=== PATIENT | male | born 1965 | race Caucasian/White ===

== ENCOUNTER 2018-08-24 17:58 | Observation (INO) ==
--- NOTE | 2018-08-24 18:05 | Emergency Department Note ---
Disposition Clinical Impression: Hyponatremia Chest pain Qualifiers: Chest pain type: unspecified Qualified Code(s): R07.9 - Chest pain, unspecified Disposition: Admitted As Inpatient Condition: Undetermined Referrals: Chris Holden DO [Primary Care Provider] - Forms: ED Satisfaction Letter Time of Disposition: 20:04 Chest Pain HPI - General Chief Complaint: ED Chest Pain Stated Complaint: chest pain Time Seen by Provider: 08/24/18 18:01 Source: patient Mode of arrival: wheelchair Limitations: physical limitation Vital Signs Reviewed: Yes Nursing Notes Reviewed: Yes - History of Present Illness HPI Narrative: 52-year-old male with history of hypertension, hyperlipidemia, cardiovascular disease, history of 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 The patient states his baseline dyspnea has worsened. In addition the patient is describing intermittent episodes of the patient is sitting still having some intermittent chest pain. The patient has no other associated symptoms at this time. He is taking all his medications as prescribed. Patient states he thinks he has had an AL before but he has had no previous stents placed. - Related Data Home Medications Medication Instructions Recorded Confirmed Baclofen [Lioresal] 15 mg PO QID 09/24/16 06/23/18 Oxycodone HCl 15 mg PO QID 09/24/16 06/23/18 Vitamin E (Dl,Tocopheryl Acet) 400 unit PO DAILY 09/24/16 06/23/18 [Vitamin E] Lisinopril [Zestril] 20 mg PO BID 06/06/17 06/23/18 Omeprazole [PriLOSEC] 40 mg PO DAILY 06/06/17 06/23/18 Gabapentin [Neurontin] 100 mg PO BID 09/05/17 06/23/18 Tamsulosin [Flomax] 0.4 mg PO DAILY 09/05/17 06/23/18 Calcitriol [Calcitriol] 0.5 g PO DAILY 08/24/18 08/24/18 Carvedilol [Carvedilol] 12.5 mg PO BID 08/24/18 08/24/18 Chlorhexidine Rinse 15 ml MM BID 08/24/18 08/24/18 Ferrous Sulfate Oral Soln 5 ml PO BID 08/24/18 08/24/18 Morphine Sulfate [Arymo ER] 30 mg PO Q12H 08/24/18 08/24/18 Multivitamin [One Daily Essential] 1 tab PO DAILY 08/24/18 08/24/18 Potassium Chloride [K-Tab ER] 20 meq PO DAILY 08/24/18 08/24/18 Sodium Chloride [Sodium Chloride 2,000 mg PO QID 08/24/18 08/24/18 Tab] Trazodone HCl [Trazodone HCl] 100 mg PO HS PRN 08/24/18 08/24/18 Previous Rx's Medication Instructions Recorded Clopidogrel [Plavix] 75 mg PO DAILY #30 tablet 04/04/17 Simvastatin [Zocor] 20 mg PO DAILY #30 tablet 10/12/17 Levothyroxine [Synthroid] 150 mcg PO DAILY #30 tablet 11/04/17 Magic Mouthwash 5 ml PO Q4HR PRN #300 ml 06/23/18 Allergies Allergy/AdvReac Type Severity Reaction Status Date / Time No Known Allergies Allergy Verified 08/24/18 19:37 All systems ED: reviewed and negative except as stated. Constitutional: Denies: fever, chills ENT ED: Denies: congestion Cardiovascular: Reports: chest pain, dyspnea on exertion. Denies: edema, syncope Respiratory: Reports: dyspnea. Denies: cough, sputum production Gastrointestinal: Denies: abdominal pain, nausea, vomiting Genitourinary: Denies: urgency, dysuria Musculoskeletal: Denies: myalgia Integumentary: Denies: rash Neurological: Denies: headache Chest Pain PMH - Past Medical History Medical history: Reports: non-contributory, cancer, COPD, coronary artery disease, hyperlipidemia, hypertension, other Surgical history: Reports: tracheostomy Psychiatric history: Reports: no psych history - Social History Smoking Status: Former smoker Alcohol use: Reports: none Drug use: Reports: none Physical Exam - General Limitations: other (Tracheostomy) General appearance: alert, in no apparent distress, cachectic - Head Head exam: atraumatic, normocephalic, normal inspection - Eye Eye exam: Present: normal appearance, PERRL, EOMI - ENT ENT exam: normal exam, normal oropharynx, mucous membranes moist - Neck Neck exam: Present: full ROM, trachea midline, other (Tracheostomy in place). Absent: tenderness - Chest Chest inspection: Present: normal inspection, symmetric chest wall rise - Respiratory Respiratory exam: Present: normal lung sounds bilaterally - Cardiovascular Cardiovascular exam: Present: regular rate, normal rhythm, normal heart sounds - Abdominal Exam Abdominal exam: Present: soft, Non-Tender. Absent: tenderness, distention, guarding, rebound, rigidity - Extremities Exam Extremities exam: Present: normal inspection, full ROM. Absent: tenderness, pedal edema - Neurological Exam Neurological exam: Present: alert, oriented X3 - Skin Skin exam: Present: warm, dry, intact, normal color Course Vital Signs Temperature 97.9 F 08/24/18 17:59 Pulse Rate 81 08/24/18 17:59 Respiratory Rate 16 08/24/18 17:59 Blood Pressure 142/80 08/24/18 17:59 O2 Sat by Pulse Oximetry 100 08/24/18 17:59 Temperature 97.9 F 08/24/18 17:59 Pulse Rate 71 08/24/18 20:01 Respiratory Rate 12 08/24/18 20:01 Blood Pressure 120/82 08/24/18 20:01 O2 Sat by Pulse Oximetry 99 08/24/18 20:01 Oxygen Delivery Oxygen Delivery Room Air Chest Pain - MDM Narrative Medical decision making narrative: Patient's workup in the emergency department demonstrates no acute process. Given the exertional and nonexertional chest pain and dyspnea the patient is experiencing, concerned about potential ACS. The patient will be admitted to the hospital for ACS rule out. The patient was made aware and agrees to plan. He got aspirin here in the emergency department. No further questions or concerns noted at this time. Accepted by Dr. Sánchez. - Lab Data Lab results reviewed: Yes I reviewed the patient's lab results. Result diagrams: 08/24/18 18:12 08/24/18 18:12 Lab Results 08/24/18 08/24/18 08/24/18 Range/Units 18:02 18:12 18:12 WBC 6.1 (4.3-11.1) K/mcL RBC 4.52 (4.19-5.50) M/mcL Hgb 12.9 (12.9-16.9) g/dL Hct 38.9 (37.5-50.1) % MCV 86.1 (83.0-100.0) fL MCH 28.5 (28.0-33.3) pg MCHC 33.2 (31.6-35.5) g/dL RDW 13.1 (11.5-14.5) % Plt Count 282 (140-400) K/mcL MPV 8.7 L (9.4-12.4) fL Immature Gran % 0.3 (0-4) % Seg Neutrophils % 80.3 % Lymphocytes % 7.9 % Monocytes % 10.7 % Eosinophils % 0.5 % Basophils % 0.3 % Neutrophils # 4.9 (1.6-8.9) K/mcL Lymphocytes # 0.5 L (0.6-4.6) K/mcL Monocytes # 0.7 (0.0-1.3) K/mcL Eosinophils # 0.0 (0.0-0.6) K/mcL Basophils # 0.0 (0.0-0.2) K/mcL APTT 27.2 (26.0-36.0) Seconds Sodium 125 L (136-145) mEq/L Potassium 3.7 (3.5-5.1) mEq/L Chloride 84 L (98-107) mEq/L Carbon Dioxide 33 H (23-29) mEq/L BUN 12 (6-20) mg/dL Creatinine 0.36 L (0.70-1.30) mg/dL Est GFR ( Amer) > 60 (> 60) Est GFR (Non-Af Amer) > 60 (> 60) BUN/Creatinine Ratio 33 H (6-26) Glucose 120 H (70-105) mg/dL Calculated Osmolality 261 L (280-300) Calcium 9.5 (8.6-10.3) mg/dL Troponin I < 0.03 (< 0.04) ng/mL - Radiology Data Radiology results reviewed: Yes I reviewed the patient's radiology results. Chest X-Ray 08/24/18 18:02 IMPRESSION: Persistent opacification in the right upper lung. Otherwise, no acute abnormality noted in the chest D/ / Ever Preciado MD / Ever Preciado MD Interpreting Provider: Ever Preciado MD - EKG Data EKG attestation: Yes I reviewed and interpreted this EKG. EKG results narrative: Heart rate 82 beats for minute. Normal sinus rhythm. No ST elevation or ST depression noted. Some peaking of T waves noted throughout the anterior lateral leads. In addition the patient does have some LA depression that is noted throughout but it is difficult to assess completely secondary to artifact and baseline wander.
--- NOTE | 2018-08-24 18:08 | Emergency Department Note ---
Disposition Clinical Impression: Chest pain Qualifiers: Chest pain type: unspecified Qualified Code(s): R07.9 - Chest pain, unspecified Disposition: Still a Patient Forms: ED Satisfaction Letter General Adult HPI - General Chief complaint: ED Chest Pain Stated complaint: chest pain Time Seen by Provider: 08/24/18 18:01 Source: patient Mode of arrival: wheelchair Limitations: physical limitation - History of Present Illness HPI Narrative: ED ATTESTATION NOTE: I examined this patient and my medical decision-making was reviewed with the Resident Physician/[employer] PICK UP DRIVER/PA/Student. I have personally performed a face to face evaluation on this patient & I agree with the documented findings, disposition and treatment plan as described except to the extent set forth below. Patient was seen with emergency medicine resident Dr. Med Sharma please see copy of his note for details of this encounter Briefly: 52-year-old male brought in for medical assistance he was trying findings U or chest pain. History of tracheostomy from cancer history of smoking history of coronary artery disease heart score of at least 4 EKG shows some elevated T waves maybe some. Depression. Patient will undergo troponin chest x-ray screening labs and admission. Disposition pending Pain Scale: 4 - Related Data Home Medications Medication Instructions Recorded Confirmed Calcitriol [Rocaltrol] 0.5 mcg PO DAILY 06/30/15 06/23/18 Carvedilol [Coreg] 12.5 mg PO BIDWM 06/30/15 06/23/18 Ferrous Sulfate Oral Soln 5 ml PO TID 06/30/15 06/23/18 Baclofen [Lioresal] 15 mg PO QID 09/24/16 06/23/18 Docusate [Colace] 100 mg PO BID PRN 09/24/16 06/23/18 Morphine Sulfate ER (24 HR) 30 mg PO Q12H 09/24/16 06/23/18 [Morphine Sulfate ER] Oxycodone HCl 15 mg PO QID 09/24/16 06/23/18 Vitamin E (Dl,Tocopheryl Acet) 400 unit PO DAILY 09/24/16 06/23/18 [Vitamin E] Lisinopril [Zestril] 20 mg PO BID 06/06/17 06/23/18 Omeprazole [PriLOSEC] 40 mg PO DAILY 06/06/17 06/23/18 Potassium Chloride Elixir 15 ml PO DAILY 06/06/17 06/23/18 [Potassium Chloride] Sodium Chloride 2,000 mg PO QID 06/06/17 06/23/18 Acetaminophen [Tylenol] 500 mg PO Q6HR PRN 09/05/17 06/23/18 Gabapentin [Neurontin] 100 mg PO BID 09/05/17 06/23/18 Tamsulosin [Flomax] 0.4 mg PO DAILY 09/05/17 06/23/18 Albuterol Sulfate [Albuterol 1 puff IH Q6H PRN 06/23/18 06/23/18 Inhaler] Azelastine HCl [Astepro] 1 spray NS PRN PRN 06/23/18 06/23/18 Gluc 2Kcl/Chondr/Alex Hy/Hy AC 1 each PO DAILY 06/23/18 06/23/18 [Glucosamine & Chondroitin Cap] Lansoprazole [Prevacid] 30 mg PO DAILY 06/23/18 06/23/18 Previous Rx's Medication Instructions Recorded Clopidogrel [Plavix] 75 mg PO DAILY #30 tablet 04/04/17 Trazodone HCl 100 mg PO HS PRN #30 tablet 04/04/17 Simvastatin [Zocor] 20 mg PO DAILY #30 tablet 10/12/17 Levothyroxine [Synthroid] 150 mcg PO DAILY #30 tablet 11/04/17 Supplies [SUPPLIES] 1 each .ROUTE DAILY #20 each 01/12/18 Lactose-Reduced Food [Ensure 237 ml PO BID #60 liquid 02/16/18 Enlive] Megestrol Acetate [Megace] 800 mg PO DAILY #400 udc 02/16/18 Ondansetron [Zofran ODT] 8 mg SL Q8H PRN #60 tab 02/16/18 Azithromycin [Azithromycin 6-Tab 250 mg PO PER PKG DI #6 tab 03/24/18 Pack] Neomycn/Baci Zn/Pmyx Bs/Pramox 28 gm TP AD #1 oint...g. 03/24/18 [Eql First Aid Antibiotic-Pain] Chlorhexidine Rinse 15 ml MM DAILY #200 mouthwash 06/23/18 Magic Mouthwash 5 ml PO Q4HR PRN #300 ml 06/23/18 Supplies [SUPPLIES] 1 each .ROUTE AD #1 each 06/23/18 Allergies Allergy/AdvReac Type Severity Reaction Status Date / Time No Known Allergies Allergy Verified 06/23/18 11:49 Constitutional: Denies: fever, chills ENT ED: Denies: congestion Cardiovascular: Reports: chest pain, dyspnea on exertion. Denies: edema, syncope Respiratory: Reports: dyspnea. Denies: cough, sputum production Gastrointestinal: Denies: abdominal pain, nausea, vomiting Genitourinary: Denies: urgency, dysuria Musculoskeletal: Denies: myalgia Integumentary: Denies: rash Neurological: Denies: headache Past Medical History - Past Medical History Medical history: Reports: non-contributory, cancer, COPD, coronary artery disease, hyperlipidemia, hypertension, other Surgical history: Reports: tracheostomy Psychiatric history: Reports: no psych history - Social History Smoking Status: Former smoker Smokeless Tobacco Status: No Alcohol use: Reports: none Drug use: Reports: none Physical Exam - General Limitations: physical limitation General appearance: alert, in no apparent distress Course Vital Signs Temperature 97.9 F 08/24/18 17:59 Pulse Rate 81 08/24/18 17:59 Respiratory Rate 16 08/24/18 17:59 Blood Pressure 142/80 08/24/18 17:59 O2 Sat by Pulse Oximetry 100 08/24/18 17:59 Temperature 97.9 F 08/24/18 17:59 Pulse Rate 81 08/24/18 17:59 Respiratory Rate 16 08/24/18 17:59 Blood Pressure 142/80 08/24/18 17:59 O2 Sat by Pulse Oximetry 100 08/24/18 17:59 Oxygen Delivery Oxygen Delivery Room Air
[2018-08-24 18:26] LABS: Basophils % 0.3 %; Eosinophils % 0.5 %; Hematocrit 38.9 % (37.5-50.1); Hemoglobin 12.9 g/dL (12.9-16.9); Immature Granulocytes % 0.3 % (0-4); Lymphocytes # 0.5 K/mcL (0.6-4.6); Lymphocytes % 7.9 %; Mean Corpuscular HGB Conc 33.2 g/dL (31.6-35.5); Mean Corpuscular Hemoglobin 28.5 pg (28.0-33.3); Mean Corpuscular Volume 86.1 fL (83.0-100.0); Mean Platelet Volume 8.7 fL (9.4-12.4); Monocytes # 0.7 K/mcL (0.0-1.3); Monocytes % 10.7 %; Neutrophils # 4.9 K/mcL (1.6-8.9); Platelet Count 282 K/mcL (140-400); Red Blood Count 4.52 M/mcL (4.19-5.50); Red Cell Distribution Width 13.1 % (11.5-14.5); Segmented Neutrophils % 80.3 %
[2018-08-24 18:46] LABS: Troponin I < 0.03 ng/mL (< 0.04)
[2018-08-24 18:48] LABS: BUN/Creatinine Ratio 33 (6-26); Blood Urea Nitrogen 12 mg/dL (6-20); Calcium 9.5 mg/dL (8.6-10.3); Carbon Dioxide 33 mEq/L (23-29); Chloride 84 mEq/L (98-107); Glucose 120 mg/dL (70-105); Osmolality,Calculated 261 (280-300); Potassium 3.7 mEq/L (3.5-5.1); Sodium 125 mEq/L (136-145); eGFR For Non-African Americans > 60 (> 60)
[2018-08-24] MEDS ORDERED: Aspirin 325 MG TABLET PO ONE (19:03)
[2018-08-24] MEDS ORDERED: Naloxone 0.4 MG/ML INJ IVP PRN ×2 (21:26→21:27)
--- NOTE | 2018-08-24 21:28 | Internal Med History&Physical ---
<Pravin Rhodes - Last Filed: 08/25/18 00:39> Date of Encounter: 08/25/18 Time of Encounter: 21:28 Internal Medicine - H&P: HPI Chief complaint: Chest Pain Admitted From: Emergency Dept Plans for Post Hospital Care: Home History of present illness: Mr. Ryan is a 52 year old male with a past medical history of COPD, lung cancer, tracheostomy, coronary artery disease, hyperlipidemia, hypertension. He presented to the emergency department for 2 days of progressive chest pain. He states that the chest pain feels like muscle pain to him however it was not resolving so he came in. He cannot correlate the chest pain to activity or rest , he describes it as being across his entire chest without radiation, he denies any shortness of breath other than his baseline. He also denies any fever, chills, abdominal pain or nausea. EKG in the emergency department demonstrated sinus rhythm, normal rate, peaked T waves that were identified on previous EKGs. Chest x-ray demonstrated right upper lobe opacification that appears to be persistent and stable from previous chest x-rays, likely related to previous lung cancer. Vitals were within normal limits, CBC noncontributory, CMP with hyponatremia at 125, bicarbonate 33 likely related to COPD. Troponin less than 0.03. Aspirin 325 mg given once and ED with improvement of patient's chest pain. On my exam patient states he is still having mild chest pain but is in no acute distress. He believes he had a heart attack approximately 20-30 years ago but does not remember the circumstances and otherwise denies cardiac history. He states he still smokes 2-3 cigarettes per day, denies alcohol or drug use. Past Med Surg Social Fam HX - Past Medical History Medical history: non-contributory, cancer, COPD, coronary artery disease, hyperlipidemia, hypertension, other Additional medical history: tobacco abuse. colon cancer screening. tracheostomy status. history of throat cancer. PEG Psychiatric history: no psych history - Past Surgical History Surgical History: tracheostomy Additional surgical history: TRACHEOSTOMY, G-TUBE - Social History Smoking Status: Former smoker Smokeless Tobacco Status: No Alcohol use: none Drug use: none - Family History Mother Hx Family Medical Disorders: No Father Hx Family Medical Disorders: No Internal Medicine - H&P: Meds Baclofen [Lioresal] 10 mg PO QID 09/24/16 [History] Oxycodone HCl 15 mg PO QID 09/24/16 [History] Vitamin E (Dl,Tocopheryl Acet) [Vitamin E] 400 unit PO DAILY 09/24/16 [History] Clopidogrel [Plavix] 75 mg PO DAILY #30 tablet 04/04/17 [Rx] Lisinopril [Zestril] 20 mg PO BID 06/06/17 [History] Omeprazole [PriLOSEC] 40 mg PO DAILY 06/06/17 [History] Gabapentin [Neurontin] 300 mg PO HS 09/05/17 [History] Tamsulosin [Flomax] 0.4 mg PO DAILY 09/05/17 [History] Simvastatin [Zocor] 20 mg PO DAILY #30 tablet 10/12/17 [Rx] Levothyroxine [Synthroid] 150 mcg PO DAILY #30 tablet 11/04/17 [Rx] Magic Mouthwash 5 ml PO Q4HR PRN #300 ml 06/23/18 [Rx] Calcitriol [Calcitriol] 0.5 g PO DAILY 08/24/18 [History] Carvedilol [Carvedilol] 12.5 mg PO BID 08/24/18 [History] Chlorhexidine Rinse 15 ml MM BID 08/24/18 [History] Ferrous Sulfate Oral Soln 5 ml PO BID 08/24/18 [History] Morphine Sulfate [Arymo ER] 30 mg PO Q12H 08/24/18 [History] Multivitamin [One Daily Essential] 1 tab PO DAILY 08/24/18 [History] Potassium Chloride [K-Tab ER] 20 meq PO DAILY 08/24/18 [History] Sodium Chloride [Sodium Chloride Tab] 2,000 mg PO QID 08/24/18 [History] Trazodone HCl [Trazodone HCl] 100 mg PO HS PRN 08/24/18 [History] 3 Allergy/AdvReac Type Severity Reaction Status Date / Time No Known Allergies Allergy Verified 08/24/18 19:37 All Systems PM: A 10-system review of systems was performed and is negative for pertinent findings except as documented above in the HPI. - Constitutional Constitutional: no chills, no fever(s), no night sweats - EENT Eyes: no change in vision, no discharge, no pain, no photophobia Ears: no ear discharge, no ear pain, no tinnitus Nose, mouth and throat: no dysphagia, no nasal discharge, no neck pain, no sore throat - Cardiovascular Cardiovascular ROS IM: chest pain, no diaphoresis, no dyspnea, no lightheadedness, no palpitations, no syncope - Respiratory Respiratory: no cough, no dyspnea, no wheezing, no excessive phlegm production - Gastrointestinal Gastrointestinal: no abdominal pain, no diarrhea, no hematemesis, no hematochezia, no melena, no nausea, no vomiting - Musculoskeletal Musculoskeletal ROS IM: neck pain, no numbness, no tingling - Integumentary Integumentary IM: no rash, no unusual bruising - Neurological Neurological ROS: no confusion, no convulsions, no focal weakness, no numbness, no tingling, no tremor(s) - Hematologic/Lymphatic Hematologic/Lymphatic: no easy bruising - Constitutional Vitals: Temp Pulse Resp BP Pulse Ox 97.9 F 71 12 120/82 99 08/24/18 17:59 08/24/18 20:01 08/24/18 20:01 08/24/18 20:01 08/24/18 20:01 General appearance: Present: no acute distress Exam: as seen below - Head Head exam: Present: normal inspection - Eye Eye exam: Present: normal appearance, PERRL - ENT ENT exam: Present: mucous membranes dry, normal external ear exam - Neck Additional comments: Neck stiff and kyphotic - Respiratory Respiratory exam: Present: decreased breath sounds, prolonged expiratory phase - Cardiovascular Cardiovascular exam: Present: RRR, +S1, +S2 - GI/Abdominal GI/Abdominal exam: Present: normal bowel sounds, soft - Extremities Exam Extremities exam: Absent: calf tenderness Additional comments: Evidence of status post tissue transfer on arm - Neurological Exam Neurological exam: Present: alert, CN II-XII intact - Psychiatric Psychiatric exam: Present: depressed. Absent: anxious - Skin Skin exam: Present: dry, warm Internal Med - H&P Results - Labs CBC & Chem 7: 08/24/18 18:12 08/24/18 18:12 Labs: Short CBC 08/24/18 Range/Units 18:12 WBC 6.1 (4.3-11.1) K/mcL Hgb 12.9 (12.9-16.9) g/dL Hct 38.9 (37.5-50.1) % Plt Count 282 (140-400) K/mcL Neutrophils # 4.9 (1.6-8.9) K/mcL BMP 08/24/18 18:12 Sodium 125 L Potassium 3.7 Chloride 84 L Carbon Dioxide 33 H BUN 12 Creatinine 0.36 L Glucose 120 H Calcium 9.5 Cardiac Enzymes 08/24/18 Range/Units 18:12 Troponin I < 0.03 (< 0.04) ng/mL - Impressions ITS Impressions Chest X-Ray 08/24/18 18:02 IMPRESSION: Persistent opacification in the right upper lung. Otherwise, no acute abnormality noted in the chest D/ / Ever Preciado MD / Ever Preciado MD Interpreting Provider: Ever Preciado MD - Assessment and plan (1) Chest pain Current Visit: Yes Status: Acute Assessment and plan: Patient presented with acute onset chest pain 2 days Diffuse in nature without radiation or correlation with exertion or shortness of breath Patient described it as musculoskeletal chest x-ray did not demonstrate cardiac etiology EKG demonstrated sinus rhythm, normal rate, peaked T waves and ST elevation in lateral precordial leads Chest pain slightly improved with dose of aspirin ED, completely resolved on floor Patient has remote history of cardiac event that he cannot specify, otherwise negative cardiac history CMP revealed sodium 125, bicarbonate 33, troponin less than 0.03 Vitals otherwise stable Plan Chest pain rule out Repeat EKG Continuous cardiac monitoring and pulse oximetry Trend serial troponins Nitroglycerin as needed for chest pain Patient not currently having chest pain and troponin negative, but EKG concerning Repeat EKG slightly better but still demonstrating abnormalities We will await repeat troponin to consider cardiology consultation Qualifiers: Chest pain type: unspecified Qualified Code(s): R07.9 - Chest pain, unspecified (2) Hyponatremia Current Visit: Yes Status: Acute Assessment and plan: Patient presented with sodium of 125 Sodium chloride 2 g by mouth 4 times a day ordered Will repeat CMP in a.m. (3) COPD (chronic obstructive pulmonary disease) Current Visit: No Status: Chronic Assessment and plan: Patient has complicated history of COPD, supraglottic laryngeal cancer, lung cancer He is currently not in respiratory distress and is saturating appropriately on room air Patient admits to continued tobacco abuse We will continue to monitor and encourage smoking cessation Qualifiers: COPD type: unspecified COPD Qualified Code(s): J44.9 - Chronic obstructive pulmonary disease, unspecified (4) HTN (hypertension) Current Visit: Yes Status: Acute Assessment and plan: Patient has chronic hypertension managed with home lisinopril Blood pressure stable here, we will continue home lisinopril Qualifiers: Hypertension type: unspecified Qualified Code(s): I10 - Essential (primary ) hypertension (5) Chronic pain following surgery or procedure Current Visit: No Status: Chronic Assessment and plan: Patient has chronic neck pain associated with surgical procedures for supraglottic laryngeal cancer He sees pain management and receives morphine and oxycodone We will continue these home medications (6) Squamous cell carcinoma of right lung Current Visit: No Status: Chronic Assessment and plan: Patient has history of squamous cell carcinoma in the right lung At last oncology visit in June 2018 he was found to be in remission No current chemotherapy or radiation therapy We will monitor (7) Laryngeal cancer Current Visit: No Status: Chronic Assessment and plan: History of laryngeal cancer, last oncology note in June 2018, in remission, no treatment currently, we will monitor (8) DVT prophylaxis Current Visit: Yes Status: Acute Assessment and plan: 5000 units subcutaneous heparin every 8 hours - Time Spent With Patient Total time spent is greater than 50% in coordination of care (as documented) at patient's floor/unit and/or counseling patient: <Andrew Truong - Last Filed: 08/25/18 06:06> Date of Encounter: 08/25/18 Internal Medicine - H&P: HPI History of present illness: Mr. Ryan is a 52 year old male All Systems PM: A 10-system review of systems was performed and is negative for pertinent findings except as documented above in the HPI. - Constitutional Vitals: Temp Pulse Resp BP Pulse Ox 98.4 F 71 16 134/77 95 08/25/18 05:24 08/25/18 05:24 08/25/18 05:24 08/25/18 05:24 08/25/18 05:24 Internal Med - H&P Results - Labs CBC & Chem 7: 08/25/18 00:31 08/25/18 00:31 Labs: Short CBC 08/25/18 Range/Units 00:31 WBC 8.5 (4.3-11.1) K/mcL Hgb 12.8 L (12.9-16.9) g/dL Hct 38.9 (37.5-50.1) % Plt Count 275 (140-400) K/mcL Neutrophils # 7.0 (1.6-8.9) K/mcL BMP 08/25/18 00:31 Sodium 128 L Potassium 4.1 Chloride 90 L Carbon Dioxide 31 H BUN 10 Creatinine 0.33 L Glucose 85 Calcium 9.6 Cardiac Enzymes 08/25/18 Range/Units 00:31 Troponin I < 0.03 (< 0.04) ng/mL Liver Function 08/25/18 Range/Units 00:31 Total Bilirubin 0.5 (0.3-1.0) mg/dL AST 20 (13-39) Units/L ALT 12 (7-52) Units/L Alkaline Phosphatase 62 (34-104) Units/L Albumin 4.0 (3.5-5.7) g/dL - Assessment and plan (1) Laryngeal cancer Current Visit: No Status: Chronic (2) Squamous cell carcinoma of right lung Current Visit: No Status: Chronic (3) Chest pain Current Visit: Yes Status: Acute Qualifiers: Chest pain type: unspecified Qualified Code(s): R07.9 - Chest pain, unspecified (4) Hyponatremia Current Visit: Yes Status: Acute (5) COPD (chronic obstructive pulmonary disease) Current Visit: No Status: Chronic Qualifiers: COPD type: unspecified COPD Qualified Code(s): J44.9 - Chronic obstructive pulmonary disease, unspecified (6) HTN (hypertension) Current Visit: Yes Status: Acute Qualifiers: Hypertension type: unspecified Qualified Code(s): I10 - Essential (primary ) hypertension (7) Chronic pain following surgery or procedure Current Visit: No Status: Chronic (8) DVT prophylaxis Current Visit: Yes Status: Acute - Time Spent With Patient Total time spent is greater than 50% in coordination of care (as documented) at patient's floor/unit and/or counseling patient: - Attending Attestation Patient seen and examined. Chart was reviewed. Case discussed with resident. Patient presents with intermittent atypical chest pain with remote history of coronary artery disease in the setting of significant smoking history and hypertension. Initial troponins were negative however EKG shows hyperacute T waves and diffuse ST elevations. Patient asymptomatic currently, however, given his abnormal EKG and history, would recommend cardiology consult prior to any further ischemic workup.
[2018-08-24] MEDS ORDERED: Magic Mouthwash 10 ML UD Cup PO PRN (21:30)
[2018-08-24] MEDS ORDERED: Nitroglycerin 0.4 MG TAB.SUBL SL PRN (21:35)
[2018-08-25 00:57] LABS: Basophils % 0.2 %; Eosinophils % 0.5 %; Hematocrit 38.9 % (37.5-50.1); Hemoglobin 12.8 g/dL (12.9-16.9); Immature Granulocytes % 0.2 % (0-4); Lymphocytes # 0.5 K/mcL (0.6-4.6); Lymphocytes % 6.4 %; Mean Corpuscular HGB Conc 32.9 g/dL (31.6-35.5); Mean Corpuscular Hemoglobin 28.3 pg (28.0-33.3); Mean Corpuscular Volume 86.1 fL (83.0-100.0); Mean Platelet Volume 9.2 fL (9.4-12.4); Monocytes # 0.9 K/mcL (0.0-1.3); Monocytes % 10.6 %; Platelet Count 275 K/mcL (140-400); Red Blood Count 4.52 M/mcL (4.19-5.50); Segmented Neutrophils % 82.1 %
[2018-08-25 01:11] LABS: Alanine Aminotransferase 12 Units/L (7-52); Albumin/Globulin Ratio 1.1 (1.1-2.2); Alkaline Phosphatase 62 Units/L (34-104); Aspartate Amino Transferase 20 Units/L (13-39); BUN/Creatinine Ratio 30 (6-26); Bilirubin,Total 0.5 mg/dL (0.3-1.0); Blood Urea Nitrogen 10 mg/dL (6-20); Calcium 9.6 mg/dL (8.6-10.3); Carbon Dioxide 31 mEq/L (23-29); Chloride 90 mEq/L (98-107); Globulin 3.5 g/dL (2.4-3.5); Glucose 85 mg/dL (70-105); Magnesium 1.4 mg/dL (1.6-2.6); Osmolality,Calculated 264 (280-300); Potassium 4.1 mEq/L (3.5-5.1); Sodium 128 mEq/L (136-145); Total Protein 7.5 g/dL (6.4-8.9); eGFR For Non-African Americans > 60 (> 60)
[2018-08-25] MEDS: *HR* Morphine Sulfate SR (12 HR) 30 MG TABLET.ER PO SCH ×2 (01:23→09:52)
[2018-08-25] MEDS: *HR* Heparin 5,000 UNIT/ML VIAL SQ SCH ×3 (01:29→13:38)
[2018-08-25] MEDS: *HR* OxyCODONE Immed Rel 15 MG TABLET PO SCH ×3 (01:29→13:36)
[2018-08-25] MEDS: Ondansetron 4 MG/2 ML VIAL IVP PRN ×2 (05:05→13:36)
[2018-08-25] MEDS ORDERED: Lisinopril 20 MG TABLET PO SCH (09:00)
[2018-08-25] MEDS ORDERED: Ferrous Sulfate Oral Soln 300 MG/5 ML UDC PO SCH (09:00)
[2018-08-25] MEDS ORDERED: Chlorhexidine Rinse 15 ML MOUTHWASH MM SCH (09:00)
[2018-08-25] MEDS ORDERED: *HR* OxyCODONE Immed Rel 15 MG TABLET PO SCH (09:00)
--- NOTE | 2018-08-25 09:28 | Internal Med Progress Note ---
Hospitalist Progress Note - Encounter Date of Encounter: 08/25/18 Time of Encounter: 09:45 - Exam Vitals: Temp Pulse Resp BP Pulse Ox 98.7 F 72 16 136/79 96 08/25/18 07:09 08/25/18 07:09 08/25/18 07:09 08/25/18 07:09 08/25/18 07:09 - Time Spent with Patient Total time spent is greater than 50% in coordination of care (as documented) at patient's floor/unit and/or counseling patient: Internal Medicine: Result - Labs CBC & Chem 7: 08/25/18 00:31 08/25/18 00:31 Labs: Short CBC 08/25/18 Range/Units 00:31 WBC 8.5 (4.3-11.1) K/mcL Hgb 12.8 L (12.9-16.9) g/dL Hct 38.9 (37.5-50.1) % Plt Count 275 (140-400) K/mcL Neutrophils # 7.0 (1.6-8.9) K/mcL BMP 08/25/18 00:31 Sodium 128 L Potassium 4.1 Chloride 90 L Carbon Dioxide 31 H BUN 10 Creatinine 0.33 L Glucose 85 Calcium 9.6 Cardiac Enzymes 08/25/18 08/25/18 Range/Units 00:31 05:32 Troponin I < 0.03 < 0.03 (< 0.04) ng/mL Liver Function 08/25/18 Range/Units 00:31 Total Bilirubin 0.5 (0.3-1.0) mg/dL AST 20 (13-39) Units/L ALT 12 (7-52) Units/L Alkaline Phosphatase 62 (34-104) Units/L Albumin 4.0 (3.5-5.7) g/dL Consult Discharge Plan - Plan Referrals: Chris Holden DO [Primary Care Provider] -
[2018-08-25] MEDS: Baclofen 10 MG TABLET PO SCH ×2 (09:52→13:36)
[2018-08-25 10:52] VITALS: BP 158/84
--- NOTE | 2018-08-25 11:51 | Cardiology Consult Note ---
Date of Encounter: 08/25/18 Time of Encounter: 11:44 Assessment and Plan (1) Chest pain Current Visit: Yes Status: Acute C/o left shoulder pain in male with h/o remote VA. EKG shows NSR with early repolarization. No significant change from prior EKG. Troponin negative x3. Recommended further work-up with stress test and echo. No recent cardiac work- up. Pt declines further testing and prefers out pt work-up. We will schedule him to be seen in a couple weeks to discuss further testing. Qualifiers: Chest pain type: unspecified Qualified Code(s): R07.9 - Chest pain, unspecified Discussion w patient/family: The assessment and plan as outlined above was discussed with the patient and/or family members who expressed understanding and agreement. All questions were answered. Thank you for involving us in the care of your patient. Please call with any questions. History of Present Illness Consult date: 08/25/18 Requesting physician: Don Vance Consult reason: chest pain, abnormal EKG Chief complaint: left shoulder pain for three days. History of present illness: Mr. Ryan is a 52 year old male with past medical history of remote VA, laryngeal cancer s/p tracheostomy, lung nodules, COPD, and former tobacco use. He presents with the c/o intermittent left shoulder pain that occurs with activity for 4 days. He states he is very active and pain often comes with activity. Denies reproducible pain. He has chronic SOB that is unchanged. He states that he had VA over 20 years ago when he was an alcoholic. He is unsure of prior work-up. He denies current ETOH use. He is now pain free and requesting to go home. Cardiology consulted for abnormal EKG. Past Med Surg Social Fam HX - Past Medical History Medical history: non-contributory, cancer, COPD, hyperlipidemia, hypertension, other Additional medical history: tobacco abuse. colon cancer screening. tracheostomy status. history of throat cancer. PEG Psychiatric history: no psych history - Past Surgical History Surgical History: tracheostomy Additional surgical history: TRACHEOSTOMY, G-TUBE - Social History Smoking Status: Former smoker Smokeless Tobacco Status: No Alcohol use: none Drug use: none - Family History Mother Hx Family Medical Disorders: No Father Hx Family Medical Disorders: No Medications and Allergies Baclofen [Lioresal] 10 mg PO QID 09/24/16 [History] Oxycodone HCl 15 mg PO QID 09/24/16 [History] Vitamin E (Dl,Tocopheryl Acet) [Vitamin E] 400 unit PO DAILY 09/24/16 [History] Clopidogrel [Plavix] 75 mg PO DAILY #30 tablet 04/04/17 [Rx] Lisinopril [Zestril] 20 mg PO BID 06/06/17 [History] Omeprazole [PriLOSEC] 40 mg PO DAILY 06/06/17 [History] Gabapentin [Neurontin] 300 mg PO HS 09/05/17 [History] Tamsulosin [Flomax] 0.4 mg PO DAILY 09/05/17 [History] Simvastatin [Zocor] 20 mg PO DAILY #30 tablet 10/12/17 [Rx] Levothyroxine [Synthroid] 150 mcg PO DAILY #30 tablet 11/04/17 [Rx] Magic Mouthwash 5 ml PO Q4HR PRN #300 ml 06/23/18 [Rx] Calcitriol [Calcitriol] 0.5 g PO DAILY 08/24/18 [History] Carvedilol [Carvedilol] 12.5 mg PO BID 08/24/18 [History] Chlorhexidine Rinse 15 ml MM BID 08/24/18 [History] Ferrous Sulfate Oral Soln 5 ml PO BID 08/24/18 [History] Morphine Sulfate [Arymo ER] 30 mg PO Q12H 08/24/18 [History] Multivitamin [One Daily Essential] 1 tab PO DAILY 08/24/18 [History] Potassium Chloride [K-Tab ER] 20 meq PO DAILY 08/24/18 [History] Sodium Chloride [Sodium Chloride Tab] 2,000 mg PO QID 08/24/18 [History] Trazodone HCl [Trazodone HCl] 100 mg PO HS PRN 08/24/18 [History] 3 Allergy/AdvReac Type Severity Reaction Status Date / Time No Known Allergies Allergy Verified 08/24/18 19:37 All Systems Review: The remainder of the systems were reviewed and are negative Physical Examination Vital Signs, Last 4 Hours Temp Pulse Resp BP Pulse Ox 08/25/18 10:46 98.7 F 70 16 158/84 96 General: Conversant, No Apparent Distress, Other (chachetic) HEENT: Atraumatic, Normocephaly, Mucus Membranes Moist, Other (trach in place with voice box) Neck: No JVD, Normal carotid pulses Cardiac: Reg Rate and Rhythm, Normal S1 and S2, No Murmur Lungs: Normal Breath Sounds, No Wheeze, Rales, Rhonchi Neuro: Alert and responsive, No focal deficits noted Abdomen: Soft, Non-Tender Skin: No rashes noted on visualized skin Musculoskeletal: No Chest Wall Tenderness Extremities: No Clubbing, No Cyanosis, No Edema, Normal Pulses Results 08/25/18 00:31 08/25/18 00:31 Lab Results 08/25/18 08/25/18 08/25/18 00:31 00:31 00:31 WBC 8.5 Hgb 12.8 L Hct 38.9 Plt Count 275 Sodium 128 L Potassium 4.1 Chloride 90 L Carbon Dioxide 31 H BUN 10 Creatinine 0.33 L Glucose 85 Calcium 9.6 Magnesium 1.4 L Total Bilirubin 0.5 AST 20 ALT 12 Alkaline Phosphatase 62 Troponin I < 0.03 08/25/18 05:32 WBC Hgb Hct Plt Count Sodium Potassium Chloride Carbon Dioxide BUN Creatinine Glucose Calcium Magnesium Total Bilirubin AST ALT Alkaline Phosphatase Troponin I < 0.03 - EKG Interpretation EKG results cardiology: personally reviewed Consult Discharge Plan - Plan Referrals: Chris Holden DO [Primary Care Provider] -
--- NOTE | 2018-08-25 13:55 | Discharge Summary ---
<Don Vance - Last Filed: 08/25/18 16:49> Orders not resulted at time of discharge: Pending orders 08/25/18 10:06 EV echocardiogram Routine 08/25/18 11:26 NM chaka perf SPECT multi [NM] Routine Date of Encounter: 08/25/18 Time of Encounter: 09:00 - Discharge Diagnosis (1) Chest pain Priority: Primary Status: Acute Qualifiers: Chest pain type: unspecified Qualified Code(s): R07.9 - Chest pain, unspecified (2) HTN (hypertension) Priority: Secondary Status: Acute Qualifiers: Hypertension type: unspecified Qualified Code(s): I10 - Essential (primary ) hypertension (3) Hyponatremia Priority: Secondary Status: Acute (4) COPD (chronic obstructive pulmonary disease) Priority: Secondary Status: Chronic Qualifiers: COPD type: unspecified COPD Qualified Code(s): J44.9 - Chronic obstructive pulmonary disease, unspecified (5) Laryngeal cancer Priority: Secondary Status: Chronic Hospital course: Mr. Ryan is a 52 year old male PMHx COPD, lung cancer not on radiation ( remission), tracheostomy, CAD, hyperlipidemia, HTN presents with CP x 2 days. He reports that it feels like muscle pain but is unresolving. It does not radiate, denies SOB, fever, chills, N/V, abdominal pain, diarrhea. Symptoms consistent with atypical chest pain. EKG demonstrated peaked T wave and ST elevation at lateral precordial leads similar to prior EKGs. Patient without cardiac history but he reports possible CT 20 years ago. ASA 325 mg was given with improvement of chest pain. Troponins have been negative x 3. Chest pain has resolved. Cardiology was consulted due to abnormal EKG and recommended TTE and ischemic evaluation, but patient has declined further work up. He states that he will follow up as outpatient. Risk of not performing an evaluation was discussed with patient and he reports understanding. He will continue ASA, statin and follow up outpatient. Discharge discussed with: patient - Time Spent with Patient Total time spent providing and/or coordinating discharge services: Greater than 30 minutes - Discharge Medications Home Medications: Baclofen [Lioresal] 10 mg PO QID 09/24/16 [History] Oxycodone HCl 15 mg PO QID 09/24/16 [History] Vitamin E (Dl,Tocopheryl Acet) [Vitamin E] 400 unit PO DAILY 09/24/16 [History] Clopidogrel [Plavix] 75 mg PO DAILY #30 tablet 04/04/17 [Rx] Lisinopril [Zestril] 20 mg PO BID 06/06/17 [History] Omeprazole [PriLOSEC] 40 mg PO DAILY 06/06/17 [History] Gabapentin [Neurontin] 300 mg PO HS 09/05/17 [History] Tamsulosin [Flomax] 0.4 mg PO DAILY 09/05/17 [History] Simvastatin [Zocor] 20 mg PO DAILY #30 tablet 10/12/17 [Rx] Levothyroxine [Synthroid] 150 mcg PO DAILY #30 tablet 11/04/17 [Rx] Magic Mouthwash 5 ml PO Q4HR PRN #300 ml 06/23/18 [Rx] Calcitriol 0.5 g PO DAILY 08/24/18 [History] Carvedilol 12.5 mg PO BID 08/24/18 [History] Chlorhexidine Rinse 15 ml MM BID 08/24/18 [History] Ferrous Sulfate Oral Soln 5 ml PO BID 08/24/18 [History] Morphine Sulfate [Arymo ER] 30 mg PO Q12H 08/24/18 [History] Multivitamin [One Daily Essential] 1 tab PO DAILY 08/24/18 [History] Potassium Chloride [K-Tab ER] 20 meq PO DAILY 08/24/18 [History] Sodium Chloride [Sodium Chloride Tab] 2,000 mg PO QID 08/24/18 [History] Trazodone HCl 100 mg PO HS PRN 08/24/18 [History] Allergies/Adverse Reactions: 3 Allergy/AdvReac Type Severity Reaction Status Date / Time No Known Allergies Allergy Verified 08/24/18 19:37 Date of admission: 08/24/18 21:52 Primary care physician: Chris Holden DO Consults: 08/24/18 22:58 Consult to Nutrition [CONS] Routine Comment: Consulting Provider: NUTRITION Reason for Dietary Consult: MST Score 08/25/18 04:06 Consult to Cardiology [CONS] Routine Comment: Consulting Provider: Cardiology [place] Reason for Consult: abnormal EKG Call Completed: No Discharging clinician: Don Vance Anticipated date of discharge: 08/25/18 - Constitutional Vitals: Temp Pulse Resp BP Pulse Ox 98.7 F 70 16 158/84 96 08/25/18 10:46 08/25/18 10:46 08/25/18 10:46 08/25/18 10:46 08/25/18 10:46 General appearance: Present: no acute distress Exam: - Constitutional Constitutional: no chills, no fever(s), no night sweats. chronically ill. - EENT Eyes: no change in vision, no discharge, no pain, no photophobia Ears: no ear discharge, no ear pain, no tinnitus Nose, mouth and throat: no dysphagia, no nasal discharge, no neck pain, no sore throat - Cardiovascular Cardiovascular ROS IM: chest pain, no diaphoresis, no dyspnea, no lightheadedness, no palpitations, no syncope - Respiratory Respiratory: no cough, no dyspnea, no wheezing, no excessive phlegm production - Gastrointestinal Gastrointestinal: no abdominal pain, no diarrhea, no hematemesis, no hematochezia, no melena, no nausea, no vomiting - Musculoskeletal Musculoskeletal ROS IM: neck pain, no numbness, no tingling - Integumentary Integumentary IM: no rash, no unusual bruising - Neurological Neurological ROS: no confusion, no convulsions, no focal weakness, no numbness, no tingling, no tremor(s) - Hematologic/Lymphatic Hematologic/Lymphatic: no easy bruising - Patient Status Disposition: Home, Self-Care Condition: Undetermined Functional capacity at discharge: bed bound Overall status at discharge: patient is back to baseline - Discharge Instructions Instructions: Chronic Hypertension (DC) Follow Up With: Chris Holden DO [Primary Care Provider] - Ramon Butcher DO [Partnered Physician] - - Diet and Activity Activity: increase activity as tolerated Diet: advance to your usual diet <Hayden Smith - Last Filed: 08/25/18 17:47> Orders not resulted at time of discharge: Pending orders 08/25/18 11:26 NM chaka perf SPECT multi [NM] Routine Date of Encounter: 08/25/18 - Discharge Diagnosis (1) Laryngeal cancer Status: Chronic (2) Squamous cell carcinoma of right lung Status: Chronic (3) Chest pain Status: Acute Qualifiers: Chest pain type: unspecified Qualified Code(s): R07.9 - Chest pain, unspecified (4) Hyponatremia Status: Acute (5) COPD (chronic obstructive pulmonary disease) Status: Chronic Qualifiers: COPD type: unspecified COPD Qualified Code(s): J44.9 - Chronic obstructive pulmonary disease, unspecified (6) HTN (hypertension) Status: Acute Qualifiers: Hypertension type: unspecified Qualified Code(s): I10 - Essential (primary ) hypertension (7) Chronic pain following surgery or procedure Status: Chronic (8) DVT prophylaxis Status: Acute Hospital course: Mr. Ryan is a 52 year old male - Time Spent with Patient Total time spent providing and/or coordinating discharge services: Date of admission: 08/24/18 21:52 Primary care physician: Chris Holden DO Consults: 08/24/18 22:58 Consult to Nutrition [CONS] Routine Comment: Consulting Provider: NUTRITION Reason for Dietary Consult: MST Score 08/25/18 04:06 Consult to Cardiology [CONS] Routine Comment: Consulting Provider: Cardiology [place] Reason for Consult: abnormal EKG Call Completed: No - Constitutional Vitals: Temp Pulse Resp BP Pulse Ox 98.7 F 70 16 158/84 96 08/25/18 10:46 08/25/18 10:46 08/25/18 10:46 08/25/18 10:46 08/25/18 10:46 - Attending Attestation 52 year old gentle man with lung cancer came in for chest pain Gen - Awake, alert, oriented x 3, no acute distress HEENT - NCAT, PERRLA, EOMI, hearing grossly intact, has tracheostomy in place CV - RRR, normal S1 and S2, no M/R/G, no BLE edema Resp - Normal WOB, CTAB, no W/R/R GI - Soft, NT/ND, no masses, normal bowel sounds, Skin - Warm, dry, no rashes/lesions/ulcers Psych - Normal mood and affect, no depression or anxiety Plan Chest pain. Was seen by cardiology and offered ischemic workup but declined. Counseled regarding the benefits but elected for outpatient workup. Agree with discharge summary as above
[2018-08-25] MEDS ORDERED: Gabapentin 100 MG CAPSULE PO SCH (21:00)
--- NOTE | 2018-08-26 09:30 | Electrocardiograph Report ---
[place] [id number] Test Date: 2018-08-25 Pat Name: Saran Ryan Department: 115 Room: 3A Gender: M Curriculum Director: FARZANEH : 1965 Requested By: Pravin Rhodes Order Number: [id number] Reading MD: Fidelia Kaiser Measurements Intervals [place] Rate: 69 P: 69 GA: 173 QRS: 57 QRSD: 86 T: 75 QT: 390 QTc: 408 Interpretive Statements SINUS RHYTHM VOLTAGE CRITERIA FOR LVH TALL T-WAVES, SUGGESTS HYPERKALEMIA Electronically Signed On 08-26-2018 9:29:20 EDT by Fidelia Kaiser
--- NOTE | 2018-08-26 09:56 | Electrocardiograph Report ---
[place] [id number] Test Date: 2018-08-24 Pat Name: Saran Ryan Department: [id number] Room: 3A47 Gender: Supervisor Bonding: : 1965 Requested By: Noah Sharma Order Number: [id number] Reading MD: Fidelia Kaiser Measurements Intervals [place] Rate: 82 P: 74 NV: 153 QRS: 67 QRSD: 83 T: 86 QT: 409 QTc: 478 Interpretive Statements Sinus rhythm Consider right atrial enlargement ST elevation suggests acute pericarditis Borderline prolonged QT interval Electronically Signed On 08-26-2018 9:54:43 EDT by Fidelia Kaiser
== END 2018-08-25 14:35 | disposition home or self-care (01) ==
LOC: EMEROOARM 17:58 → 3ANU 17:58
PROVIDERS: ADMIT Internal Medicine; ATTEND Internal Medicine